=== PATIENT | female | born 1945 | race Hispanic/Latino ===

== ENCOUNTER → 2021-02-01 | Outpatient (CLI) | payer MEDICARE, OTHER ==
[~2021-02-01] MED LIST: AMLO-258 PO; ASPI-1443 PO; ATOR10 PO; BIMA12.5OS OU; CHOL100040 PO; DILT30TA3 PO; GABA-531 PO; INSLAN SQ; METO-391 PO; TRAM50TA4 PO
== END | disposition home or self-care (01) ==
LOC: RAH 14:22
PROVIDERS: ATTEND Orthopaedic Surgery
DX: M25.462 Effusion, left knee (principal); M17.0 Bilateral primary osteoarthritis of knee; M85.862 Other specified disorders of bone density and structure, left lower leg
CPT/HCPCS: 73700

== ENCOUNTER 2021-03-29 08:43 | Observation (INO) | payer OTHER ==
[2021-03-23 16:11] LABS: BASOPHILS % (AUTO) 0.8 % (0.0-5.0); EOSINOPHILS % (AUTO) 3.6 % (0.0-8.0); HEMATOCRIT 33.8 % (36-48); LYMPHOCYTES % (AUTO) 19.8 % (21.0-51.0); MEAN CORPUSCULAR HEMOGLOBIN 30.8 pg (27.0-33.0); MEAN CORPUSCULAR HGB CONC 32.5 g/dL (32.0-36.0); MEAN CORPUSCULAR VOLUME 94.7 fL (79-99); MONOCYTES % (AUTO) 9.2 % (3.0-13.0); NEUTROPHILS % (AUTO) 66.3 % (40.0-77.0); PLATELET COUNT (AUTO) 317 K/uL (130-400); RED BLOOD CELL COUNT(AUTO) 3.57 MIL/uL (4.00-5.50); RED CELL DISTRIBUTION WIDTH 12.3 % (11.0-15.5); WHITE BLOOD COUNT (AUTO) 7.8 K/uL (4.8-10.8)
[2021-03-23 16:19] LABS: CREATININE 1.3 mg/dL (0.5-1.5); POTASSIUM 4.6 mmol/L (3.5-5.1)
[2021-03-23 16:22] LABS: INR 1.69 (0.85-1.15); PROTHROMBIN TIME 17.6 SEC (9.6-11.6)
[2021-03-28 10:01] VITALS: BP 162/77
[~2021-03-29] VITALS: Ht 160 cm; Wt 73.2 kg
[2021-03-29] VITALS (21 sets, daily range): BP systolic 133–171; BP diastolic 55–76
[~2021-03-29 08:43] MED LIST changes: -AMLO-258 PO; +ASPI-1012 PO; -ASPI-1443 PO; +CALC-1125 PO; -CHOL100040 PO; -DILT30TA3 PO; +LACTATED RINGERS 1000ML 1,000 ML IV SCH; +LISI1TAB51 PO; +METF-444 PO; -METO-391 PO; +OXYB5TAB15 PO; +PIND10TA2 PO; +ROPIVICAINE 250MG+KETOROLAC 15MG+EPINEPHRINE 0.3+CLONIDINE 80 IV PRN; -TRAM50TA4 PO; +TRANEXAMIC ACID 3,000 MG in 0.9% NACL 250ML 250 ML TP SCH
[2021-03-29] MEDS: CEFAZOLIN SODIUM 1 GM VIAL IVP SCH ×3 (09:30→17:55)
[2021-03-29] MEDS ORDERED: 0.9%NACL 1000ML 1,000 ML IV ONE (09:43)
[2021-03-29] MEDS ORDERED: TRANEXAMIC ACID 1000MG/10ML ONE (09:57)
[2021-03-29] MEDS ORDERED: LIDOCAINE PF 100MG/5ML (2%) SYRINGE 5ML ONE (11:02)
[2021-03-29] MEDS ORDERED: PROPOFOL 10 MG/ML 20ML VIAL IV ONE (11:02)
[2021-03-29] MEDS ORDERED: ROCURONIUM 10MG/1ML SYR 10 MG/ML ML ONE (11:02)
[2021-03-29] MEDS ORDERED: MIDAZOLAM HCL 1 MG/ML 2ML VIAL ONE (11:02)
[2021-03-29] MEDS ORDERED: FENTANYL CITRATE PF 50 MCG/1 ML 2ML VIAL ONE (11:03)
[2021-03-29] MEDS ORDERED: ROPIVACAINE 0.5% 5MG/ML 30ML IJ ONE (11:04)
[2021-03-29] MEDS ORDERED: EPHEDRINE SULFATE 50 MG/ML AMPULE ONE (11:37)
[2021-03-29] MEDS ORDERED: GLYCOPYRROLATE 1 MG/5 ML SYRINGE ONE (13:41)
[2021-03-29] MEDS ORDERED: NEOSTIGMINE 5MG/5ML SYR IV ONE (13:41)
[2021-03-29] MEDS: GABAPENTIN 300 MG CAPSULE PO SCH ×2 (14:00→21:14)
[2021-03-29] MEDS ORDERED: HYDROCODONE/ACETAMINOPHEN 5/325 MG TAB PO PRN (14:00)
[2021-03-29] MEDS: ACETAMINOPHEN 500 MG TABLET PO SCH ×2 (14:00→21:15)
[2021-03-29] MEDS ORDERED: ONDANSETRON 4MG INJ IVP PRN (14:00)
[2021-03-29] MEDS ORDERED: MORPHINE 4 MG SYG IVP PRN (14:00)
[2021-03-29] MEDS: 0.9%NACL 1000ML 1,000 ML IV SCH (14:00)
[2021-03-29] MEDS ORDERED: OXYCODONE HCL 5 MG TAB PO PRN (14:00)
[2021-03-29] MEDS ORDERED: MEPERIDINE-PF 25 MG/ML SYG ONE (14:12)
[2021-03-29] MEDS: INSULIN HUMULIN R 100 UNIT/ML 3ML SQ SCH ×2 (16:30→21:00)
[2021-03-29] MEDS: TRAMADOL HCL 50 MG TABLET PO SCH (17:50)
[2021-03-29] MEDS ORDERED: CEFAZOLIN SODIUM 1 GM VIAL ONE (17:51)
[2021-03-29] MEDS ORDERED: BIMATOPROST OU SCH (21:00)
[2021-03-29] MEDS: PINDOLOL 5 MG TAB PO SCH (21:14)
[2021-03-29] MEDS: FAMOTIDINE 20MG TAB PO SCH (21:15)
[2021-03-29] MEDS: METFORMIN HCL 500 MG TABLET PO SCH (21:15)
[2021-03-29] MEDS: OXYBUTYNIN CHLORIDE 5 MG TABLET PO SCH (21:15)
[2021-03-29] MEDS: ASPIRIN 81 MG EC TAB PO SCH (21:15)
[2021-03-30] VITALS: BP 136/63
[2021-03-30] MEDS: TRAMADOL HCL 50 MG TABLET PO SCH ×3 (00:37→14:03)
[2021-03-30] MEDS: CEFAZOLIN SODIUM 1 GM VIAL IVP SCH (02:54)
[2021-03-30] MEDS: 0.9%NACL 1000ML 1,000 ML IV SCH ×2 (02:59→10:00)
[2021-03-30 03:53] LABS: HEMATOCRIT 26.5 % (36-48); MEAN CORPUSCULAR HEMOGLOBIN 30.9 pg (27.0-33.0); MEAN CORPUSCULAR HGB CONC 32.8 g/dL (32.0-36.0); RED BLOOD CELL COUNT(AUTO) 2.82 MIL/uL (4.00-5.50); RED CELL DISTRIBUTION WIDTH 12.4 % (11.0-15.5); WHITE BLOOD COUNT (AUTO) 8.3 K/uL (4.8-10.8)
[2021-03-30 04:00] VITALS: BP 113/50
[2021-03-30 04:07] LABS: CREATININE 1.4 mg/dL (0.5-1.5); POTASSIUM 4.1 mmol/L (3.5-5.1)
[2021-03-30] MEDS: ACETAMINOPHEN 500 MG TABLET PO SCH ×2 (05:57→14:00)
[2021-03-30] MEDS ORDERED: INSULIN GLARGINE 100 UNITS/ML 10 ML VIAL SQ SCH (07:30)
[2021-03-30] MEDS: INSULIN HUMULIN R 100 UNIT/ML 3ML SQ SCH ×2 (08:07→11:30)
[2021-03-30 08:21] VITALS: BP 122/56
[2021-03-30] MEDS ORDERED: POLYETHYLENE GLYCOL 3350 17 GM POWD.PACK PO SCH (09:00)
[2021-03-30] MEDS ORDERED: HYDROCHLOROTHIAZIDE 25 MG TABLET PO SCH (09:00)
[2021-03-30] MEDS ORDERED: LISINOPRIL 20 MG TABLET PO SCH (09:00)
[2021-03-30] MEDS: PINDOLOL 5 MG TAB PO SCH (10:15)
[2021-03-30] MEDS: ASPIRIN 81 MG EC TAB PO SCH (10:16)
[2021-03-30] MEDS: METFORMIN HCL 500 MG TABLET PO SCH (10:16)
[2021-03-30] MEDS: OXYBUTYNIN CHLORIDE 5 MG TABLET PO SCH (10:16)
[2021-03-30] MEDS: FAMOTIDINE 20MG TAB PO SCH (10:16)
[2021-03-30 11:17] VITALS: BP 124/59
[2021-03-30] MEDS ORDERED: GABAPENTIN 300 MG CAPSULE PO SCH (14:00)
[2021-03-30 15:05] LABS: APPEARANCE,URINE CLOUDY (CLEAR); BILIRUBIN,URINE NEGATIVE (NEGATIVE); COLOR,URINE YELLOW (YELLOW); GLUCOSE, URINE (UA) NEGATIVE (NEGATIVE); KETONES,URINE 5 mg/dL (NEGATIVE); LEUKOCYTE ESTERASE ,URINE MODERATE (NEGATIVE); NITRATE,URINE NEGATIVE (NEGATIVE); OCCULT BLOOD,URINE MODERATE (NEGATIVE); PH,URINE 5.5 (5.0-8.0); PROTEIN,URINE 30 mg/dL (NEGATIVE); UROBILINOGEN,URINE 0.2 mg/dL (0.2-1.0)
[2021-03-30 15:14] LABS: BACTERIA,URINE Few /HPF (None Seen); WBC,URINE >100 /HPF (0-1)
[2021-03-30 15:15] LABS: SQUAMOUS EPITHELIAL CELL,UR None Seen /HPF (0-2)
[2021-03-30 15:51] VITALS: BP 120/56
[2021-04-01] MEDS ORDERED: BISACODYL 10 MG SUPP.RECT RC PRN (14:00)
== END 2021-03-30 18:38 | disposition home or self-care (01) ==
LOC: DAH 08:43 → DAHIP 08:44 → 4BH 15:30
PROVIDERS: ADMIT Orthopaedic Surgery; ATTEND Orthopaedic Surgery
DX: M17.0 Bilateral primary osteoarthritis of knee (principal); Z20.822 Contact with and (suspected) exposure to COVID-19; M24.562 Contracture, left knee; E11.9 Type 2 diabetes mellitus without complications; I73.9 Peripheral vascular disease, unspecified; I10 Essential (primary) hypertension; Z90.710 Acquired absence of both cervix and uterus; Z68.28 Body mass index [BMI] 28.0-28.9, adult; Z79.899 Other long term (current) drug therapy
CPT/HCPCS: 0055T; 27447; 36415; 64448; 76942; 80048; 81001; 82948; 85025; 85027; 85610; 85730; 87077; 87088; 87186; 87635; 87641; 88305; 88311; 93005; 96372; 96374; 96376; 97039; C9803; G0378; J0171; J0690; J0735; J1815; J1885; J2001; J2175; J2250; J2704; J2710; J2795; J3010; J3490; J7030; J7050

== ENCOUNTER → 2022-07-05 | Outpatient (CLI) | payer OTHER ==
[~2022-07-05] MED LIST changes: -ASPI-1012 PO; -ATOR10 PO; -CALC-1125 PO; -LACTATED RINGERS 1000ML 1,000 ML IV SCH; +LIDOCAINE HCL 1% 20 ML VIAL ONE; -ROPIVICAINE 250MG+KETOROLAC 15MG+EPINEPHRINE 0.3+CLONIDINE 80 IV PRN; -TRANEXAMIC ACID 3,000 MG in 0.9% NACL 250ML 250 ML TP SCH
[2022-07-05 11:18] LABS: PROTHROMBIN TIME 10.9 SEC (9.6-11.6)
[2022-07-05 11:20] LABS: PARTIAL THROMBOPLASTIN TIME 25.6 SEC (26.3-35.5)
== END | disposition home or self-care (01) ==
LOC: RAH 09:49
PROVIDERS: ATTEND Otolaryngology Plastic Surgery within the Head & Neck
DX: E04.2 Nontoxic multinodular goiter (principal); Z79.01 Long term (current) use of anticoagulants
CPT/HCPCS: 10005; 10006; 36415; 76942; 85610; 85730; 88173; 88305